=== PATIENT | male | born 1980 | race American Indian/Alaskan Native ===

== ENCOUNTER 2016-12-01 19:22 | Emergency (ER) | payer MEDICAID, OTHER ==
[~2016-12-01] VITALS: Ht 182.9 cm; Wt 105.0 kg
[2016-12-01 19:26] VITALS: BP 163/103
[2016-12-01] MEDS ORDERED: HYDROcodone/APAP 5/325 TABLET ONE (19:53)
[2016-12-01] MEDS ORDERED: HYDROcodone/APAP 5/325 TABLET PO ONE (20:35)
== END 2016-12-01 20:40 | disposition home or self-care (01) ==
LOC: ED 20:19
DX: S93.491A Sprain of other ligament of right ankle, initial encounter (principal); I10 Essential (primary) hypertension; Z88.6 Allergy status to analgesic agent; X50.1XXA Overexertion from prolonged static or awkward postures, initial encounter; Y93.89 Activity, other specified; Y92.098 Other place in other non-institutional residence as the place of occurrence of the external cause; Y99.8 Other external cause status
CPT/HCPCS: 99284

== ENCOUNTER 2017-05-25 08:05 | Emergency (ER) | payer SELFPAY ==
[~2017-05-25] VITALS: Ht 182.9 cm; Wt 110.0 kg
[2017-05-25 08:08] VITALS: BP 139/89
== END 2017-05-25 09:30 | disposition home or self-care (01) ==
LOC: ED 09:24
DX: B34.9 Viral infection, unspecified (principal); I10 Essential (primary) hypertension; Z90.49 Acquired absence of other specified parts of digestive tract
CPT/HCPCS: 71046; 99284

== ENCOUNTER 2017-08-17 15:13 | Emergency (ER) | payer OTHER ==
[~2017-08-17] VITALS: Ht 182.9 cm; Wt 113.8 kg
[2017-08-17 15:20] VITALS: BP 198/104
[2017-08-17 16:38] LABS: MICROSCOPIC NOT IND
[2017-08-17] MEDS ORDERED: MAALOX/HYOSCYAMINE/LIDOCAINE 45 ML BTL PO ONE (17:00)
[2017-08-17] MEDS ORDERED: MAALOX/HYOSCYAMINE/LIDOCAINE 45 ML BTL ONE (17:00)
[2017-08-17 17:27] LABS: ALANINE AMINOTRANSFERASE 69 U/L (12-78); ALBUMIN 3.6 g/dL (3.4-5.0); ANION GAP 6 mmol/L (5-15); CALCIUM 8.4 mg/dL (8.5-10.1); CHLORIDE 111 mmol/L (98-107); CREATININE 0.93 mg/dL (0.7-1.3)
[2017-08-17 17:29] LABS: ALKALINE PHOSPHATASE 92 U/L (45-117); BASOPHILS # (AUTO) 0.04 x10^3/uL (0-0.1); BASOPHILS % (AUTO) 0 % (0-1); BILIRUBIN,TOTAL 0.4 mg/dL (0.2-1.0); EOSINOPHILS # (AUTO) 0.26 x10^3/uL (0-0.4); EOSINOPHILS % (AUTO) 2 % (1-7); LYMPHOCYTES # (AUTO) 2.57 x10^3/uL (1-3.4); LYMPHOCYTES % (AUTO) 22 % (22-44); MD NO; MEAN CORPUSCULAR HEMOGLOBIN 32.2 pg (27.5-34.5); MEAN CORPUSCULAR HGB CONC 34.6 g/dL (33.2-36.2); MEAN CORPUSCULAR VOLUME 92.9 fL (81-97); MEAN PLATELET VOLUME 8.1 fL (7.4-10.4); MONOCYTES # (AUTO) 0.59 x10^3/uL (0.2-0.8); MONOCYTES % (AUTO) 5 % (2-9); NEUTROPHILS # (AUTO) 8.13 x10^3/uL (1.8-6.8); NEUTROPHILS % (AUTO) 70 % (42-75); PLATELET COUNT 314 x10^3/uL (130-400); RED BLOOD COUNT 4.93 x10^6/uL (4.38-5.82); RED CELL DISTRIBUTION WIDTH 13.5 % (9.4-14.8); TOTAL PROTEIN 7.6 g/dL (6.4-8.2)
== END 2017-08-17 18:14 | disposition home or self-care (01) ==
LOC: ED 18:03
DX: K59.00 Constipation, unspecified (principal); I10 Essential (primary) hypertension; Z90.49 Acquired absence of other specified parts of digestive tract
CPT/HCPCS: 36415; 74021; 80053; 81003; 83690; 85025; 93005; 99285

== ENCOUNTER 2017-10-12 09:44 | Emergency (ER) | payer OTHER ==
[~2017-10-12] VITALS: Ht 182.9 cm; Wt 113.1 kg
[2017-10-12 10:37] LABS: BASOPHILS # (AUTO) 0.04 x10^3/uL (0-0.1); BASOPHILS % (AUTO) 0 % (0-1); EOSINOPHILS # (AUTO) 0.19 x10^3/uL (0-0.4); EOSINOPHILS % (AUTO) 2 % (1-7); LYMPHOCYTES # (AUTO) 2.45 x10^3/uL (1-3.4); LYMPHOCYTES % (AUTO) 26 % (22-44); MD NO; MEAN CORPUSCULAR HEMOGLOBIN 32.1 pg (27.5-34.5); MEAN CORPUSCULAR HGB CONC 34.9 g/dL (33.2-36.2); MEAN CORPUSCULAR VOLUME 91.8 fL (81-97); MONOCYTES # (AUTO) 0.39 x10^3/uL (0.2-0.8); MONOCYTES % (AUTO) 4 % (2-9); NEUTROPHILS # (AUTO) 6.46 x10^3/uL (1.8-6.8); NEUTROPHILS % (AUTO) 68 % (42-75); PLATELET COUNT 323 x10^3/uL (130-400); RED BLOOD COUNT 4.99 x10^6/uL (4.38-5.82); RED CELL DISTRIBUTION WIDTH 12.9 % (9.4-14.8)
[2017-10-12 10:48] LABS: ALBUMIN 3.6 g/dL (3.4-5.0); ANION GAP 7 mmol/L (5-15); CALCIUM 8.4 mg/dL (8.5-10.1); CHLORIDE 109 mmol/L (98-107); CREATININE 1.11 mg/dL (0.7-1.3)
[2017-10-12] MEDS ORDERED: METO-95 PO (11:26)
[2017-10-12] MEDS ORDERED: LOSA100T6 PO (11:26)
[2017-10-12 11:40] LABS: MICROSCOPIC NOT IND
[2017-10-12 11:42] LABS: CULTURE INDICATED? NO
[2017-10-12 12:16] VITALS: BP 143/86
== END 2017-10-12 12:18 | disposition home or self-care (01) ==
LOC: ED 11:49
DX: J01.00 Acute maxillary sinusitis, unspecified (principal); R04.0 Epistaxis; I10 Essential (primary) hypertension; Z59.0 Homelessness; Z90.49 Acquired absence of other specified parts of digestive tract
CPT/HCPCS: 36415; 70450; 71046; 80048; 81003; 82040; 85025; 93005; 99285

== ENCOUNTER 2019-06-14 07:43 | Emergency (ER) | payer SELFPAY ==
[~2019-06-14] VITALS: Ht 182.9 cm; Wt 114.1 kg
[~2019-06-14 07:43] MED LIST: LOSA100T14 PO; METO-95 PO
--- NOTE | 2019-06-14 08:09 | NUR ---
PT HERE FOR SWELLING TO LEFT EYE. STATES LEFT EYE WAS PAINFUL LAST WEEK AND SWELLING STARTED LAST NIGHT. STATES VISION IN LEFT EYE IS BLURRY (WITH GLASSES ON) TODAY AND IT NORMALLY IS NOT WITH GLASSES ON. DENIES TRAUMA TO EYE. NO CONTACT USE. NO EYE DROPS HAVE BEEN USED. DENIES EATING ANYTHING NEW. STATES HE ONLY HAS ALLERGY TO MOTRIN. PT SITTING IN CHAIR. ELYSIA.
[2019-06-14] MEDS ORDERED: PROPARACAINE OPHTH 0.5%, 15ML ONE (08:18)
[2019-06-14] MEDS ORDERED: FLUORESCEIN OPHTHALMIC 1 MG STRIP ONE (08:18)
[2019-06-14] MEDS ORDERED: hydrochlorothiazide (08:20)
--- NOTE | 2019-06-14 08:20 | NUR ---
PT ALSO REQUESTING HELP WITH CONTROLLING BP. STATES HE HAS NOT SEEN HIS PCP IN A LONG TIME AND WILL BE GETTING INSURANCE NEXT WEEK.
[2019-06-14] MEDS ORDERED: PROPARACAINE OPHTH 0.5%, 15ML EACHEYE ONE (08:30)
[2019-06-14] MEDS ORDERED: FLUORESCEIN/BENOXINATE 5 ML DROPS OP ONE (08:30)
--- NOTE | 2019-06-14 08:38 | NUR ---
PA AT BEDSIDE ASSESSING PT NOW.
--- NOTE | 2019-06-14 09:17 | NUR ---
WAS AT BEDSIDE, NOW FINISHED ASSESSING PT.
[2019-06-14 09:50] VITALS: BP 183/117
--- NOTE | 2019-06-14 09:53 | NUR ---
PA INFORMED OF PT'S RECHECKED BP.
[2019-06-14] MEDS ORDERED: FLUORESCEIN OPHTHALMIC 1 MG STRIP OP ONE (10:30)
== END 2019-06-14 10:04 | disposition home or self-care (01) ==
LOC: ED 08:51
DX: S05.02XA Injury of conjunctiva and corneal abrasion without foreign body, left eye, initial encounter (principal); H10.32 Unspecified acute conjunctivitis, left eye; I10 Essential (primary) hypertension; Z90.49 Acquired absence of other specified parts of digestive tract; X58.XXXA Exposure to other specified factors, initial encounter; Y93.89 Activity, other specified; Y92.89 Other specified places as the place of occurrence of the external cause; Y99.8 Other external cause status
CPT/HCPCS: 99283

== ENCOUNTER 2020-05-19 06:22 | Emergency (ER) | payer SELFPAY ==
[~2020-05-19] VITALS: Ht 182.9 cm; Wt 120.2 kg
[~2020-05-19 06:22] MED LIST changes: +hydrochlorothiazide
--- NOTE | 2020-05-19 06:37 | NUR ---
pt states running out of blood pressure medications 2 months ago. per pt he takes losartan 100 mg, and hydrochlorothiazide 50 mg. pt's blood pressure elevated, ekg taken in triage
[2020-05-19] MEDS ORDERED: ONDANSETRON 2MG/ML, 2ML ONE (06:46)
[2020-05-19] MEDS ORDERED: MORPHINE SULFATE 4 MG/ML, 1ML ONE (06:46)
[2020-05-19] MEDS ORDERED: MORPHINE SULFATE 4 MG/ML, 1ML IVPush PRN (07:00)
[2020-05-19] MEDS ORDERED: SODIUM CHLORIDE FLUSH 10ML SYR IVF ONE (07:00)
[2020-05-19] MEDS ORDERED: ONDANSETRON 2MG/ML, 2ML IVPush ONE (07:00)
--- NOTE | 2020-05-19 07:07 | NUR ---
xr at bedside
[2020-05-19 07:10] LABS: BASOPHILS % (AUTO) 1 % (0-1); EOSINOPHILS % (AUTO) 3 % (1-7); LYMPHOCYTES % (AUTO) 27 % (22-44); MD NO; MEAN CORPUSCULAR HEMOGLOBIN 32.1 pg (27.5-34.5); MEAN CORPUSCULAR HGB CONC 34.9 g/dL (33.2-36.2); MEAN PLATELET VOLUME 7.7 fL (7.4-10.4); MONOCYTES % (AUTO) 5 % (2-9); NEUTROPHILS % (AUTO) 63 % (42-75); PLATELET COUNT 270 x10^3/uL (130-400); RED BLOOD COUNT 4.93 x10^6/uL (4.38-5.82); RED CELL DISTRIBUTION WIDTH 13.4 % (9.4-14.8)
[2020-05-19 07:19] LABS: ALBUMIN 3.7 g/dL (3.4-5.0); ANION GAP 2 mmol/L (5-15); CALCIUM 8.5 mg/dL (8.5-10.1); CHLORIDE 108 mmol/L (98-107); CREATININE 0.92 mg/dL (0.7-1.3)
--- NOTE | 2020-05-19 07:47 | NUR ---
pt updated on plan of care.
--- NOTE | 2020-05-19 08:18 | NUR ---
pt resting in bed. vss and blood pressure is improving. states head feels better. taxi voucher given to pt
[2020-05-19 08:53] VITALS: BP 156/72
== END 2020-05-19 08:54 | disposition home or self-care (01) ==
LOC: ED 08:39
DX: R51.9 Headache, unspecified (principal); I11.9 Hypertensive heart disease without heart failure; I44.4 Left anterior fascicular block; R94.31 Abnormal electrocardiogram [ECG] [EKG]
CPT/HCPCS: 36415; 71045; 80048; 82040; 85025; 93005; 96374; 96375; 99285; J2270; J2405

== ENCOUNTER 2020-07-05 04:31 | Emergency (ER) | payer SELFPAY ==
[~2020-07-05] VITALS: Ht 185.4 cm; Wt 119.7 kg
[2020-07-05] MEDS ORDERED: HYDROcodone/APAP 5/325 TABLET PO ONE (05:00)
[2020-07-05] MEDS ORDERED: METHOCARBAMOL 750 MG TABLET PO ONE (05:00)
[2020-07-05] MEDS ORDERED: METHOCARBAMOL 750 MG TABLET ONE (05:05)
[2020-07-05] MEDS ORDERED: HYDROcodone/APAP 5/325 TABLET ONE (05:06)
--- NOTE | 2020-07-05 06:16 | NUR ---
PT. STATES "THOSE PAIN PILLS DIDN'T HELP AT ALL". PT. REPORTED 10/10 PAIN PRIOR TO CLINICAL INFORMATICS MANAGER AND STATES "IT'S A 7 NOW, BUT I STILL FEEL IT A LOT."
[2020-07-05 06:52] VITALS: BP 169/96
--- NOTE | 2020-07-05 07:08 | NUR ---
PT RECEIVED DISCHARGE INSTRUCTIONS AND EDUCATION. PT HAD NO QUESTIONS AND STATED "i SEE MY DOCTOR IN TWO WEEKS TO FOLLOW UP ON MY BLOOD PRESSURE". PT AMBULATED TO DISCHARGE AREA, STEADY GAIT.
== END 2020-07-05 07:10 | disposition home or self-care (01) ==
LOC: ED 05:15
DX: S39.012A Strain of muscle, fascia and tendon of lower back, initial encounter (principal); M51.16 Intervertebral disc disorders with radiculopathy, lumbar region; I10 Essential (primary) hypertension; Z88.8 Allergy status to other drugs, medicaments and biological substances; Z79.899 Other long term (current) drug therapy; X58.XXXA Exposure to other specified factors, initial encounter; Y93.89 Activity, other specified; Y92.89 Other specified places as the place of occurrence of the external cause; Y99.8 Other external cause status
CPT/HCPCS: 72110; 99283

== ENCOUNTER 2020-07-12 06:49 | Emergency (ER) | payer OTHER ==
[~2020-07-12] VITALS: Ht 182.9 cm; Wt 120.2 kg
--- NOTE | 2020-07-12 07:04 | NUR ---
PT HAS HERNIATED DISC, PAIN IS UNRELEIVED. PAIN SHOOTS DOWN LEGS W N/T NO SADDLE ANETHESIA.
[2020-07-12] MEDS ORDERED: HYDR50TA6 PO (07:11)
[2020-07-12] MEDS ORDERED: KETOROLAC 30 MG/1 ML ONE (07:18)
--- NOTE | 2020-07-12 07:27 | NUR ---
Pt medicated with Toradol.
[2020-07-12] MEDS ORDERED: KETOROLAC 30 MG/1 ML IM ONE (07:30)
[2020-07-12] MEDS ORDERED: ONDANSETRON ODT 4 MG ONE (08:06)
[2020-07-12] MEDS ORDERED: HYDROmorphone 2 MG/ML, 1ML ONE (08:07)
[2020-07-12 08:18] VITALS: BP 175/116
--- NOTE | 2020-07-12 08:18 | NUR ---
TASK RN: MEDICATED PER EMAR FOR CONTINUED PAIN RATED AT 8/10
[2020-07-12] MEDS ORDERED: ONDANSETRON ODT 4 MG PO ONE (08:30)
[2020-07-12] MEDS ORDERED: HYDROmorphone 1 MG/ML, 1ML INJ IM ONE (08:30)
== END 2020-07-12 09:04 | disposition home or self-care (01) ==
LOC: ED 08:07
DX: S39.012A Strain of muscle, fascia and tendon of lower back, initial encounter (principal); I10 Essential (primary) hypertension; Z90.49 Acquired absence of other specified parts of digestive tract; Z87.891 Personal history of nicotine dependence; X58.XXXA Exposure to other specified factors, initial encounter; Y93.89 Activity, other specified; Y92.89 Other specified places as the place of occurrence of the external cause; Y99.8 Other external cause status
CPT/HCPCS: 96372; 99284; J1170; J1885; Q0162

== ENCOUNTER 2020-09-26 21:44 | Emergency (ER) | payer SELFPAY ==
[~2020-09-26] VITALS: Ht 182.9 cm; Wt 121.7 kg
[~2020-09-26 21:44] MED LIST changes: +HYDR50TA6 PO
--- NOTE | 2020-09-26 22:30 | NUR ---
PT AMBULATED STEADILY TO ROOM FROM [facility]. PT CO 02/05 MIN X TODAY, "ITS BEHIND MY EYES", CO ASSOCIATED NAUSEA AND PHOTOPHOBIA. A&OX3, SPEECH CLEAR, FACE SYMMETRICAL. +STRENGTH X 4. NO HX OF MIN. HYPERTENSIVE, SBP 200/DBP>100. HX OF HTN, COMPLIANT WITH MEDS "UNTIL A FEW DAYS AGO". REPORTEDLY RAN OUT. TAKES LOSARTAN AND OTHER UNKNOWN HTN MEDICATION. BP/SPO2/ECG MONITORING IN PLACE. IV ESTABLISHED, LABS DRAWN. Addendum: 09/26/20 at 2307 by LWEGENER DENIES CP OR SOB.
[2020-09-26] MEDS ORDERED: METOCLOPRAMIDE 5 MG/ML, 2ML ONE (22:51)
[2020-09-26] MEDS ORDERED: MORPHINE SULFATE 4 MG/ML, 1ML ONE (22:51)
[2020-09-26] MEDS ORDERED: METOCLOPRAMIDE 5 MG/ML, 2ML IVPush ONE (23:00)
[2020-09-26] MEDS ORDERED: MORPHINE SULFATE 4 MG/ML, 1ML IVPush ONE (23:00)
--- NOTE | 2020-09-26 23:07 | NUR ---
PT MEDICATED PER EMAR. TO CT. ON 2L O2 BY NC WHILE OFF MONITORING
--- NOTE | 2020-09-26 23:24 | NUR ---
PT RETURNED FROM CT. AWAKE/ALERT. USING CELL PHONE. BP/SPO2/ECG MONITORING IN PLACE.
[2020-09-26 23:34] LABS: BASOPHILS % (AUTO) 1 % (0-1); EOSINOPHILS % (AUTO) 3 % (1-7); LYMPHOCYTES % (AUTO) 32 % (22-44); MD NO; MEAN CORPUSCULAR HEMOGLOBIN 32.6 pg (27.5-34.5); MEAN CORPUSCULAR HGB CONC 35.3 g/dL (33.2-36.2); MEAN PLATELET VOLUME 8.3 fL (7.4-10.4); MONOCYTES % (AUTO) 6 % (2-9); NEUTROPHILS % (AUTO) 58 % (42-75); PLATELET COUNT 300 x10^3/uL (130-400); RED BLOOD COUNT 4.63 x10^6/uL (4.38-5.82); RED CELL DISTRIBUTION WIDTH 13.6 % (9.4-14.8)
[2020-09-26 23:42] LABS: ANION GAP 6 mmol/L (5-15); CALCIUM 8.5 mg/dL (8.5-10.1); CHLORIDE 108 mmol/L (98-107); CREATININE 0.76 mg/dL (0.7-1.3)
--- NOTE | 2020-09-26 23:45 | NUR ---
PT REPORTS SLIGHT IMPROVEMENT IN MIN (6-7/). NO GROSS NEURO DEFICITS NOTED.
--- NOTE | 2020-09-26 23:51 | NUR ---
CHART UP FOR RECHECK. PT RESTING W EYES CLOSED, EVEN/REGULAR RESPIRATIONS NOTED
--- NOTE | 2020-09-27 00:15 | NUR ---
MEDICATION REQUESTED FROM PHARMACY
[2020-09-27 00:28] VITALS: BP 168/108
--- NOTE | 2020-09-27 00:28 | NUR ---
MEDICATED PER EMAR. POC IS DC. IV DC'D AND ALLOWED TO DRESS.
[2020-09-27] MEDS ORDERED: LOSARTAN 50MG TABLET PO ONE (00:30)
--- NOTE | 2020-09-27 00:53 | NUR ---
PT REPORTS IMPROVED MIN, 09/05. DC EDUCATION PROVIDED, PT DEMONSTRATES UNDERSTANDING. PT AMBULATED STEADILY TO DC WITH RN. FRIEND IN LOBBY TO TRANSPORT PT HOME.
== END 2020-09-27 00:55 | disposition home or self-care (01) ==
LOC: ED 22:54
DX: R51.9 Headache, unspecified (principal); I10 Essential (primary) hypertension; R11.0 Nausea
CPT/HCPCS: 36415; 70450; 80048; 85025; 93005; 96374; 96375; 99284; J2270; J2765